=== PATIENT | male | born 1955 | race Caucasian/White ===

== ENCOUNTER 2018-04-06 17:03 | Inpatient (IN) ==
[2018-04-06 17:43] LABS: Basophils # 0.1 10*3/uL (0.0-0.2); Basophils % 1.3 % (0.0-0.8); Eosinophils # 0.1 10*3/uL (0.0-0.87); Eosinophils % 1.6 % (0.00-10.9); Hematocrit 30.2 VOL% (42.0-52.0); Hemoglobin 10.6 GM/DL (14.0-18.0); Immature Granulocytes % 0.4 %; Immature Granulocytes Absolute 0.03 #; Lymphocytes # 1.7 10*3/uL (1.4-4.0); Lymphocytes % 25.1 % (21.2-54.2); Mean Corpuscular HGB Conc 35.1 GM/DL (32-36); Mean Corpuscular Hemoglobin 39 PG (27-34); Mean Corpuscular Volume 112.3 FL (87-102); Mean Platelet Volume 10.7 FL (9.6-12.0); Monocytes # 1.6 10*3/uL (0.11-0.8); Monocytes % 23.1 % (1.7-12.7); Neutrophils # 3.3 10*3/uL (1.4-7.4); Neutrophils % 48.5 % (38.7-73.9); Platelet Count 89 T/CUMM (130-400); Red Blood Count 2.69 MC/CUMM (3.8-5.5); White Blood Count 6.9 T/CUMM (4-12)
[2018-04-06 17:56] LABS: Alanine Aminotransferase 35 U/L (16-61); Albumin 2.2 G/DL (3.4-5.0); Alkaline Phosphatase 137 U/L (45-117); Aspartate Amino Transferase 160 U/L (0-37); Blood Urea Nitrogen 11 MG/DL (7-18); Calcium 7.5 MG/DL (8.5-10.1); Glucose 132 MG/DL (74-106); Osmolality,Calculated 277.5 MOS/KG (273-304); Potassium 2.9 MMOL/L (3.5-5.1); Sodium 139 MMOL/L (136-145); Total Protein 6.2 G/DL (6.4-8.3)
[2018-04-06] MEDS ORDERED: SODIUM CHLORIDE 0.9% 1,000 ML IV STA (18:11)
[2018-04-06 18:16] LABS: Eosinophils 4 % (0-10); Lymphocytes 27 % (20-55); Platelet Estimate Decreased; Segmented Neutrophils 54 % (50-85); Total Cells Counted 100
[2018-04-06 18:17] LABS: Hypochromasia Slight; Reactive Lymphocytes Few; Target Cells Few
[2018-04-06 18:28] LABS: Albumin 2.2 G/DL (3.4-5.0); Bilirubin,Direct 1.67 MG/DL (0.0-0.20); Bilirubin,Indirect 0.9 MG/DL (0.0-1.0); Bilirubin,Total 2.6 MG/DL (0.2-1.0); Total Protein 6.2 G/DL (6.4-8.3)
[2018-04-06] MEDS ORDERED: MAGNESIUM SULF RIDER 2 GM in PREMIX 1 EACH IV ONE (20:59)
[2018-04-06] MEDS ORDERED: THIAMINE INJ 100 MG, FOLIC ACID INJ 1 MG, MULTIVITAMIN INJ 10 ML in SODIUM CHLORIDE 0.9... IV SCH (22:58)
[2018-04-06] MEDS ORDERED: MORPHINE 4 MG/1 ML VIAL IV PRN (22:58)
[2018-04-06] MEDS ORDERED: SODIUM CHLOR 0.9% KCL 20 MEQ 20 MEQ/1,000 ML BAG IV SCH (22:58)
[2018-04-06] MEDS ORDERED: ONDANSETRON 4 MG/2 ML VIAL IV PRN (22:58)
[2018-04-06] MEDS ORDERED: 1: THIAMINE INJ 100 MG, FOLIC ACID INJ 1 MG, MULTIVITAMIN INJ 10 ML in SODIUM CHLORIDE 0 IV SCH (23:30)
[2018-04-06 23:56] LABS: % Iron Saturation 66.7 % (18-50); Ferritin 1473.9 ng/ml (26-388)
[2018-04-07 00:55] LABS: Apearance,Urine Slightly Hazy (Clear); Bilirubin,Urine Negative (Negative); Blood, Urine Moderate mg/dL (Negative); Glucose,Urine (UA) Negative (Negative); Granular Casts,Urine 26 /LPF (0-1); Hyaline Casts,Urine 3 /LPF (0-3); Ketones,Urine Negative (Negative); Mucus,Urine Occasional /LPF (Occasional); Nitrite,Urine Negative (Negative); Protein,Urine 100 MG/DL; RBC,Urine 3 /HPF (0-4); Squamous Epithelial Cell,Urine Occasional /HPF (0-10); Urine Color Amber (Yellow); WBC,Urine 10 /HPF (0-6)
[2018-04-07 06:44] LABS: Basophils # 0.1 10*3/uL (0.0-0.2); Basophils % 1.3 % (0.0-0.8); Eosinophils # 0.1 10*3/uL (0.0-0.87); Hematocrit 30.7 VOL% (42.0-52.0); Hemoglobin 11.1 GM/DL (14.0-18.0); Immature Granulocytes % 0.3 %; Immature Granulocytes Absolute 0.02 #; Lymphocytes # 1.8 10*3/uL (1.4-4.0); Lymphocytes % 23.1 % (21.2-54.2); Mean Corpuscular HGB Conc 36.2 GM/DL (32-36); Mean Corpuscular Hemoglobin 40 PG (27-34); Mean Platelet Volume 10.2 FL (9.6-12.0); Monocytes # 1.2 10*3/uL (0.11-0.8); Monocytes % 15.1 % (1.7-12.7); Neutrophils # 4.6 10*3/uL (1.4-7.4); Neutrophils % 59.2 % (38.7-73.9); Red Blood Count 2.79 MC/CUMM (3.8-5.5); Red Cell Distribution Width 15.9 % (9.3-17.3); White Blood Count 7.7 T/CUMM (4-12)
[2018-04-07 06:45] LABS: Platelet Count 87 T/CUMM (130-400)
[2018-04-07 06:53] LABS: Albumin 2.2 G/DL (3.4-5.0); Bilirubin,Total 2.9 MG/DL (0.2-1.0); Calcium 7.6 MG/DL (8.5-10.1); Risk Ratio 3.63; Total Protein 6.4 G/DL (6.4-8.3)
[2018-04-07 07:12] LABS: Hypochromasia 1+; Macrocytosis 1+; Target Cells Few
[2018-04-07 07:13] LABS: Platelet Estimate Decreased
[2018-04-07] MEDS: PANTOPRAZOLE 40 MG TABLET PO SCH (09:33)
[2018-04-07] MEDS: MULTIVITAMIN (CENTRUM) TABLET PO SCH (09:38)
[2018-04-07] MEDS: FOLIC ACID 1 MG TABLET PO SCH (09:38)
[2018-04-07] MEDS: THIAMINE 100 MG TABLET PO SCH (09:39)
[2018-04-07 09:55] LABS: INR 1.6; PT Patient Result 16.6 SECS
[2018-04-07] MEDS ORDERED: POTASSIUM CHLORIDE 20 MEQ TABLET PO ONE (10:00)
[2018-04-07] MEDS ORDERED: MAGNESIUM SULF RIDER 4 GM in PREMIX 1 EACH IV ONE (10:00)
[2018-04-07] MEDS ORDERED: 1: THIAMINE INJ 100 MG, FOLIC ACID INJ 1 MG, MULTIVITAMIN INJ 10 ML in SODIUM CHLORIDE 0 IV SCH (10:30)
[2018-04-07 13:02] LABS: Hepatitis A Ab IgM Result Negative (Negative); Hepatitis B Core IgM Quant < 0.05 Index; Hepatitis B Core IgM Result Negative (Negative); Hepatitis B Surface Ag Quant < 0.10 Index; Hepatitis B Surface Ag Result Negative (Negative); Hepatitis C Virus Ab Quant 0.04 Index; Hepatitis C Virus Ab Result Negative (Negative)
[2018-04-07] MEDS: PHYTONADIONE 5 MG/5 ML ORAL.SYR PO SCH (15:26)
[2018-04-07] MEDS: SODIUM CHLOR 0.9% KCL 20 MEQ 20 MEQ/1,000 ML BAG IV SCH ×2 (23:34→23:35)
[2018-04-08 06:13] LABS: Basophils # 0.1 10*3/uL (0.0-0.2); Basophils % 1.3 % (0.0-0.8); Eosinophils # 0.2 10*3/uL (0.0-0.87); Eosinophils % 2.2 % (0.00-10.9); Hematocrit 31.7 VOL% (42.0-52.0); Hemoglobin 11.4 GM/DL (14.0-18.0); Immature Granulocytes % 0.2 %; Immature Granulocytes Absolute 0.02 #; Lymphocytes # 1.6 10*3/uL (1.4-4.0); Lymphocytes % 19.2 % (21.2-54.2); Mean Corpuscular Hemoglobin 39 PG (27-34); Mean Corpuscular Volume 109.3 FL (87-102); Mean Platelet Volume 10.6 FL (9.6-12.0); Monocytes # 1.3 10*3/uL (0.11-0.8); Monocytes % 16.3 % (1.7-12.7); Neutrophils % 60.8 % (38.7-73.9); Red Cell Distribution Width 15.9 % (9.3-17.3); White Blood Count 8.2 T/CUMM (4-12)
[2018-04-08 06:14] LABS: Platelet Count 84 T/CUMM (130-400)
[2018-04-08 06:17] LABS: INR 1.5; PT Patient Result 15.9 SECS
[2018-04-08 06:36] LABS: Anisocytosis 1+; Band Neutrophils 1 % (0-10); Eosinophils 1 % (0-10); Lymphocytes 17 % (20-55); Macrocytosis 1+; Platelet Estimate Decreased; Segmented Neutrophils 71 % (50-85); Total Cells Counted 100
[2018-04-08 06:37] LABS: Target Cells Few
[2018-04-08 06:49] LABS: Albumin 2.4 G/DL (3.4-5.0); Bilirubin,Total 4.9 MG/DL (0.2-1.0); Calcium 7.6 MG/DL (8.5-10.1); Osmolality,Calculated 277.4 MOS/KG (273-304); Total Protein 6.9 G/DL (6.4-8.3)
[2018-04-08] MEDS: FOLIC ACID 1 MG TABLET PO SCH (08:35)
[2018-04-08] MEDS: MULTIVITAMIN (CENTRUM) TABLET PO SCH (08:35)
[2018-04-08] MEDS: PANTOPRAZOLE 40 MG TABLET PO SCH (08:36)
[2018-04-08] MEDS: POTASSIUM CHLORIDE RIDER 10 MEQ in PREMIX 1 EACH IV SCH ×4 (08:36→12:27)
[2018-04-08] MEDS: THIAMINE 100 MG TABLET PO SCH (08:36)
[2018-04-08] MEDS: PHYTONADIONE 5 MG/5 ML ORAL.SYR PO SCH (08:42)
[2018-04-08] MEDS ORDERED: POTASSIUM CHLORIDE 20 MEQ TABLET PO ONE (09:00)
[2018-04-08] MEDS ORDERED: MAGNESIUM SULF RIDER 4 GM in PREMIX 1 EACH IV ONE (09:00)
[2018-04-08] MEDS ORDERED: LORazepam 2 MG/1 ML VIAL IV PRN (11:40)
[2018-04-08] MEDS: CLORAZEPATE 7.5 MG TABLET PO SCH ×3 (12:27→21:07)
[2018-04-08] MEDS: SODIUM CHLOR 0.9% KCL 20 MEQ 20 MEQ/1,000 ML BAG IV SCH ×2 (15:41→17:43)
[2018-04-08] MEDS: CARVEDILOL 25 MG TABLET PO SCH (17:43)
[2018-04-08 20:20] LABS: Neutrophils,Peritoneal Fluid 27 %
[2018-04-08 20:21] LABS: RBC,Peritoneal Fluid 1004 T/CUMM
[2018-04-09] MEDS: SODIUM CHLOR 0.9% KCL 20 MEQ 20 MEQ/1,000 ML BAG IV SCH (06:24)
[2018-04-09] MEDS: THIAMINE 100 MG TABLET PO SCH (08:39)
[2018-04-09] MEDS: PANTOPRAZOLE 40 MG TABLET PO SCH (08:39)
[2018-04-09] MEDS: MULTIVITAMIN (CENTRUM) TABLET PO SCH (08:39)
[2018-04-09] MEDS: CLORAZEPATE 7.5 MG TABLET PO SCH (08:39)
[2018-04-09] MEDS: CARVEDILOL 25 MG TABLET PO SCH (08:39)
[2018-04-09] MEDS: FOLIC ACID 1 MG TABLET PO SCH (08:39)
[2018-04-09] MEDS ORDERED: SPIRONOLACTONE 25 MG TABLET PO SCH (10:00)
[2018-04-09] MEDS: PHYTONADIONE 5 MG/5 ML ORAL.SYR PO SCH (11:09)
[2018-04-09 11:45] VITALS: BP 123/76
== END 2018-04-09 11:53 | disposition home or self-care (01) | DRG 433 ==
LOC: EDUNIT# → EDBD → N.ED 17:03 → N.EDINP 20:47 → SUATTDRO 20:47 → N.2E 22:32
PROVIDERS: ADMIT Hospitalist; ATTEND Internal Medicine

== ENCOUNTER 2019-02-17 12:09 | Inpatient (IN) ==
[2019-02-17] MEDS ORDERED: ACETAMINOPHEN 325 MG TABLET PO PRN (14:44)
[2019-02-17] MEDS: FUROSEMIDE 20 MG/2 ML VIAL IV SCH (15:33)
[2019-02-17] MEDS: LACTULOSE 20 GM/30 ML UDCUP PO SCH ×2 (15:33→21:39)
[2019-02-17 15:55] LABS: Basophils # 0.1 10*3/uL (0.0-0.2); Basophils % 0.8 % (0.0-0.8); Eosinophils # 0.1 10*3/uL (0.0-0.87); Eosinophils % 1.6 % (0.00-10.9); Hematocrit 39.6 VOL% (42.0-52.0); Immature Granulocytes % 0.6 %; Immature Granulocytes Absolute 0.05 #; Lymphocytes # 1.1 10*3/uL (1.4-4.0); Mean Corpuscular HGB Conc 35.4 GM/DL (32-36); Mean Corpuscular Volume 109.4 FL (87-102); Monocytes % 19.5 % (1.7-12.7); Neutrophils % 65.5 % (38.7-73.9); Platelet Count 159 T/CUMM (130-400); Red Blood Count 3.62 MC/CUMM (3.8-5.5); Red Cell Distribution Width 14.1 % (9.3-17.3); White Blood Count 8.8 T/CUMM (4-12)
[2019-02-17 16:03] LABS: INR 1.3; PT Patient Result 14.4 SECS
[2019-02-17 16:18] LABS: Calcium 8.8 MG/DL (8.5-10.1); Osmolality,Calculated 266.5 MOS/KG (273-304)
[2019-02-17 17:55] LABS: Apearance,Urine CLEAR (Clear); Bilirubin,Urine Negative (Negative); Blood, Urine Negative (Negative); Glucose,Urine (UA) Negative (Negative); Hyaline Casts,Urine 1 /LPF (0-3); Ketones,Urine Negative (Negative); Mucus,Urine Occasional /LPF (Occasional); Nitrite,Urine Negative (Negative); Protein,Urine Negative; RBC,Urine <1 /HPF (0-4); Urine Color Yellow (Yellow); Urine Specific Gravity 1.006 (1.001-1.035); Urine Urobilinogen < 2.0 EU/DL (0.2-1.0); WBC,Urine <1 /HPF (0-6)
[2019-02-17] MEDS: ALBUTEROL/IPRATROPIUM 3 ML NEB RESP TX PRN (18:18)
[2019-02-17 18:38] LABS: Lymphocytes 9 % (20-55); Macrocytosis 3+; Platelet Estimate Normal; Segmented Neutrophils 80 % (50-85); Total Cells Counted 100
[2019-02-17] MEDS: FAMOTIDINE 20 MG/2 ML VIAL IV SCH (21:40)
[2019-02-17] MEDS: SPIRONOLACTONE 50 MG TABLET PO SCH (21:40)
[2019-02-18] MEDS ORDERED: guaiFENesin 200 MG/10 ML UDCUP PO ONE (00:52)
[2019-02-18] MEDS: ALBUTEROL/IPRATROPIUM 3 ML NEB RESP TX PRN (00:57)
[2019-02-18 01:15] LABS: Calcium 8.5 MG/DL (8.5-10.1); Osmolality,Calculated 270.4 MOS/KG (273-304)
[2019-02-18 01:29] LABS: Risk Ratio 2.36; Thyroid Stimulating Hormone 4.82 uIU/ml (0.358-3.74); VLDL CHOLESTEROL 10.6 MG/DL
[2019-02-18 05:36] LABS: Calcium 8.5 MG/DL (8.5-10.1); Osmolality,Calculated 267.5 MOS/KG (273-304)
[2019-02-18] MEDS ORDERED: PANTOPRAZOLE 40 MG VIAL IV SCH (09:00)
[2019-02-18 09:16] LABS: Lymphocytes,Pleural Fluid 65 %; Monocytes,Pleural Fluid 18 %; Neutrophils,Pleural Fluid 17 %
[2019-02-18 09:21] LABS: RBC,Pleural Fluid 49161 T/CUMM
[2019-02-18] MEDS: LACTULOSE 20 GM/30 ML UDCUP PO SCH ×3 (09:53→20:32)
[2019-02-18] MEDS: MULTIVITAMIN (OCUVITE) TABLET PO SCH (09:53)
[2019-02-18] MEDS: SPIRONOLACTONE 50 MG TABLET PO SCH ×2 (09:54→20:32)
[2019-02-18] MEDS: THIAMINE 100 MG TABLET PO SCH (09:54)
[2019-02-18] MEDS: FOLIC ACID 1 MG TABLET PO SCH (09:54)
[2019-02-18] MEDS: FAMOTIDINE 20 MG/2 ML VIAL IV SCH ×2 (09:54→20:32)
[2019-02-18] MEDS: FUROSEMIDE 20 MG/2 ML VIAL IV SCH ×2 (09:54→15:48)
[2019-02-19 09:05] LABS: Amylase,Body Fluid 18 U/L; LDH,Body Fluid 47 U/L; Total Protein,Body Fluid < 1.0 G/DL; Triglycerides,Body Fluid 60 MG/DL
[2019-02-19 09:11] LABS: Neutrophils,Peritoneal Fluid 26 %
[2019-02-19 09:19] LABS: RBC,Peritoneal Fluid 637 T/CUMM
[2019-02-19] MEDS: FAMOTIDINE 20 MG/2 ML VIAL IV SCH (09:54)
[2019-02-19] MEDS: LACTULOSE 20 GM/30 ML UDCUP PO SCH (09:54)
[2019-02-19] MEDS: FUROSEMIDE 20 MG/2 ML VIAL IV SCH (09:54)
[2019-02-19] MEDS: MULTIVITAMIN (OCUVITE) TABLET PO SCH (09:54)
[2019-02-19] MEDS: THIAMINE 100 MG TABLET PO SCH (09:54)
[2019-02-19] MEDS: SPIRONOLACTONE 50 MG TABLET PO SCH (09:54)
[2019-02-19] MEDS: FOLIC ACID 1 MG TABLET PO SCH (09:54)
[2019-02-19 11:54] VITALS: BP 112/75
== END 2019-02-19 12:30 | disposition home or self-care (01) | DRG 433 ==
LOC: N.2E 13:16 → SUATTDRO 13:16
PROVIDERS: ADMIT Internal Medicine; ATTEND Internal Medicine

== ENCOUNTER 2019-02-26 16:49 | Observation (INO) ==
[2019-02-26 17:53] LABS: Basophils # 0.1 10*3/uL (0.0-0.2); Basophils % 0.7 % (0.0-0.8); Eosinophils # 0.1 10*3/uL (0.0-0.87); Eosinophils % 1.4 % (0.00-10.9); Hematocrit 40.7 VOL% (42.0-52.0); Immature Granulocytes % 1.2 %; Immature Granulocytes Absolute 0.11 #; Lymphocytes # 1.3 10*3/uL (1.4-4.0); Lymphocytes % 14.4 % (21.2-54.2); Mean Corpuscular HGB Conc 34.4 GM/DL (32-36); Mean Corpuscular Volume 110.9 FL (87-102); Mean Platelet Volume 8.7 FL (9.6-12.0); Monocytes % 20.5 % (1.7-12.7); Neutrophils % 61.8 % (38.7-73.9); Platelet Count 181 T/CUMM (130-400); Red Blood Count 3.67 MC/CUMM (3.8-5.5); White Blood Count 9.2 T/CUMM (4-12)
[2019-02-26 18:07] LABS: INR 1.2
[2019-02-26 18:15] LABS: Albumin 2.6 G/DL (3.4-5.0); Bilirubin,Total 2.6 MG/DL (0.2-1.0); Calcium 8.8 MG/DL (8.5-10.1); Osmolality,Calculated 261.1 MOS/KG (273-304); Total Protein 5.9 G/DL (6.4-8.3)
[2019-02-26] MEDS ORDERED: ONDANSETRON 4 MG/2 ML VIAL IV PRN (18:35)
[2019-02-26 19:22] LABS: Lymphocytes 13 % (20-55); Segmented Neutrophils 72 % (50-85); Total Cells Counted 100
[2019-02-26 19:23] LABS: Macrocytosis 2+; Platelet Estimate Normal
[2019-02-26] MEDS ORDERED: SODIUM POLYSTYRENE SULFATE 15 GM/60 ML BOTTLE PO ONE (22:50)
[2019-02-26] MEDS ORDERED: LACTULOSE 20 GM/30 ML UDCUP PO PRN (22:50)
[2019-02-27 08:13] LABS: Albumin 2.7 G/DL (3.4-5.0); Bilirubin,Total 3.4 MG/DL (0.2-1.0); Calcium 9.2 MG/DL (8.5-10.1); Osmolality,Calculated 255.4 MOS/KG (273-304); Total Protein 6.6 G/DL (6.4-8.3)
[2019-02-27] MEDS ORDERED: FUROSEMIDE 20 MG TABLET PO SCH (09:00)
[2019-02-27 12:23] VITALS: BP 111/67
== END 2019-02-27 13:18 | disposition home or self-care (01) ==
LOC: N.ED 16:49 → N.5E 16:49
PROVIDERS: ADMIT Internal Medicine; ATTEND Internal Medicine